=== PATIENT | female | born 1990 ===

== ENCOUNTER 2018-05-30 09:49 | Outpatient (CLI) | payer MEDICAID | END 2018-05-30 09:50 | disposition home or self-care (01) | LOC: C.USIC 09:49 | DX: N64.4 Mastodynia (principal) ==

== ENCOUNTER 2018-07-22 19:06 | Emergency (ER) | payer MEDICAID ==
[2018-07-22 19:16] VITALS: O2SAT 98
[2018-07-22] MEDS ORDERED: Sodium Chloride 0.9% 1,000 ML IV ONE (19:42)
[2018-07-22] MEDS ORDERED: Sodium Chloride 0.9% 1,000 ML ONE (19:57)
[2018-07-22 20:17] LABS: BASO # 0.1 K/uL (0.0-0.2); BASO % 1.3 % (0.0-2.0); EOS # 0.1 K/uL (0.0-0.7); EOS % 1.1 % (0.0-4.0); HEMOGLOBIN 12.1 g/dL (11.0-16.0); LYMPH # 2.6 K/uL (1.0-4.3); LYMPH % 29.7 % (20.0-40.0); MEAN CELL VOLUME 84.2 fL (81.0-99.0); MEAN CORPUSCULAR HEMOGLOBIN 27.6 pg (27.0-31.0); MEAN CORPUSCULAR HGB CONC 32.7 g/dL (33.0-37.0); MEAN PLATELET VOLUME 9.1 fL (7.2-11.7); MONO # 0.6 K/uL (0.0-0.8); MONO % 7.3 % (0.0-10.0); NEUT # 5.3 K/uL (1.8-7.0); NEUT % 60.6 % (50.0-75.0); RBC 4.38 Mil/uL (3.80-5.20); WHITE BLOOD COUNT 8.8 K/uL (4.8-10.8)
[2018-07-22 20:31] LABS: ALB/GLOB RATIO 1.2 (1.0-2.1); ALBUMIN 4.5 g/dL (3.5-5.0); ALT/SGPT 68 U/L (9-52); AST/SGOT 61 U/L (14-36); BLOOD UREA NITROGEN 15 mg/dL (7-17); CALCIUM 9.4 mg/dl (8.6-10.4); GFR NON-AFRICAN AMERICAN > 60; LIPASE 107 U/L (23-300)
[2018-07-22 20:40] LABS: SQUAMOUS EPITHIAL 4 /hpf (0-5); URINE BILIRUBIN NEGATIVE (NEGATIVE); URINE BLOOD 1+ (NEGATIVE); URINE CLARITY Hazy (Clear); URINE COLOR Yellow (YELLOW); URINE GLUCOSE (UA) NORMAL (Normal); URINE LEUKOCYTE ESTERASE 1+ Leu/uL (Negative); URINE PROTEIN NEGATIVE (NEGATIVE); URINE UROBILINOGEN NORMAL mg/dL (0.2-1.0)
[2018-07-22] MEDS ORDERED: Iodixanol 320 MG/ML 100 ML BOTTLE IV ONE (20:57)
--- NOTE | 2018-07-22 22:15 | C.PDOC ---
History Of Present Illness 28 year old female presents to the ED for evaluation of abdominal pain for one day. Patient reports mild nausea. She denies fever, chills, chest pain, shortness of breath, vomiting, recent travel or sick contact. Time Seen by Provider: 07/22/18 19:20 Chief Complaint (Nursing): Abdominal Pain History Per: Patient History/Exam Limitations: no limitations Onset/Duration Of Symptoms: Hrs Current Symptoms Are (Timing): Still Present Location Of Pain/Discomfort: Diffuse Quality Of Discomfort: "Pain" Associated Symptoms: Nausea. denies: Fever, Chills, Vomiting, Chest Pain Additional History Per: Patient Abnormal Vaginal Bleeding: No Past Medical History Reviewed: Historical Data, Nursing Documentation, Vital Signs Vital Signs: Last Vital Signs Temp 98.1 F 07/22/18 19:11 Pulse 87 07/22/18 19:11 Resp 18 07/22/18 19:11 BP 135/90 07/22/18 19:11 Pulse Ox 98 07/22/18 19:11 - Medical History PMH: No Chronic Diseases Surgical History: No Surg Hx Family History: States: Unknown Family Hx - Social History Hx Alcohol Use: Yes Hx Substance Use: No - Immunization History Hx Tetanus Toxoid Vaccination: No Hx Influenza Vaccination: No Hx Pneumococcal Vaccination: No Review Of Systems Constitutional: Negative for: Fever, Chills Cardiovascular: Negative for: Chest Pain Respiratory: Negative for: Shortness of Breath Gastrointestinal: Positive for: Nausea, Abdominal Pain (diffuse ). Negative for: Vomiting Physical Exam - Physical Exam Appears: Non-toxic, No Acute Distress Skin: Normal Color, Warm, Dry Head: Atraumatic, Normacephalic Eye(s): bilateral: Normal Inspection Oral Mucosa: Moist Neck: Supple Chest: Symmetrical, No Deformity, No Tenderness Cardiovascular: Rhythm Regular, No Murmur Respiratory: Normal Breath Sounds, No Rales, No Rhonchi, No Wheezing Gastrointestinal/Abdominal: Soft, Tenderness (diffuse ), No Guarding, No Rebound Extremity: Normal ROM, Capillary Refill (less than 2 seconds ) Neurological/Psych: Oriented x3, Normal Speech, Normal Cognition ED Course And Treatment - Laboratory Results Result Diagrams: 07/22/18 20:11 07/22/18 20:11 Lab Results: Total Bilirubin 0.8 mg/dL (0.2-1.3) 07/22/18 20:11 AST 61 U/L (14-36) H 07/22/18 20:11 ALT 68 U/L (9-52) H 07/22/18 20:11 Alkaline Phosphatase 97 U/L (38-126) 07/22/18 20:11 Total Protein 8.3 g/dL (6.3-8.3) 07/22/18 20:11 Albumin 4.5 g/dL (3.5-5.0) 07/22/18 20:11 Globulin 3.8 gm/dL (2.2-3.9) 07/22/18 20:11 Albumin/Globulin Ratio 1.2 (1.0-2.1) 07/22/18 20:11 Lipase 107 U/L (23-300) 07/22/18 20:11 Urine Color Yellow (YELLOW) 07/22/18 19:58 Urine Clarity Hazy (Clear) 07/22/18 19:58 Urine pH 6.0 (5.0-8.0) 07/22/18 19:58 Ur Specific Tracy 1.027 (1.003-1.030) 07/22/18 19:58 Urine Protein Negative mg/dL (NEGATIVE) 07/22/18 19:58 Urine Glucose (UA) Normal mg/dL (Normal) 07/22/18 19:58 Urine Ketones Negative mg/dL (NEGATIVE) 07/22/18 19:58 Urine Blood 1+ (NEGATIVE) H 07/22/18 19:58 Urine Nitrate Negative (NEGATIVE) 07/22/18 19:58 Urine Bilirubin Negative (NEGATIVE) 07/22/18 19:58 Urine Urobilinogen Normal mg/dL (0.2-1.0) 07/22/18 19:58 Ur Leukocyte Esterase 1+ Matt/uL (Negative) H 07/22/18 19:58 Urine WBC (Auto) 19 /hpf (0-5) H 07/22/18 19:58 Urine RBC (Auto) 9 /hpf (0-3) H 07/22/18 19:58 Ur Squamous Epith Cells 4 /hpf (0-5) 07/22/18 19:58 O2 Sat by Pulse Oximetry: 98 (on RA ) Pulse Ox Interpretation: Normal - CT Scan/US CT A/P Other Rad Studies (CT/US): Read By Radiologist, Radiology Report Reviewed CT/US Interpretation: EXAM: CT Abdomen and Pelvis with IV contrast. CLINICAL HISTORY: Diffuse abd pain. TECHNIQUE: Axial computed tomography images of the abdomen and pelvis with intravenous contrast. 0.00 mGy-cm. CONTRAST: With; VISI 320 100MLS. COMPARISON: None provided. FINDINGS: LUNG BASES: The lung bases appear clear. No pleural effusions are seen. LIVER: Unremarkable. GALLBLADDER AND BILE DUCTS: The gallbladder appears normal in size and configuration. A 2.3 cm cholelith is noted within the gallbladder fundus. No biliary ductal dilatation is evident. PANCREAS: Unremarkable. SPLEEN: Unremarkable. ADRENAL GLANDS: Unremarkable. KIDNEYS, URETERS, AND BLADDER: The kidneys appear within normal limits. There is no hydronephrosis or hydroureter. No urinary calculi are seen. STOMACH AND BOWEL: Unremarkable appearance of the stomach and bowel. No evidence of bowel obstruction. No evidence suggesting enteritis or colitis. APPENDIX: No evidence of acute appendicitis on CT examination. PERITONEUM: No free fluid. No free air. LYMPH NODES: No lymphadenopathy is evident. REPRODUCTIVE: Unremarkable as visualized. VASCULATURE: No evidence of abdominal aortic aneurysm. BONES: No aggressive appearing osseous lesion. No acute osseous pathology evident. IMPRESSION: 1. No acute intra-abdominal or pelvic abnormality. 2. A 2.3 cm cholelith is noted within the gallbladder fundus. Medical Decision Making Medical Decision Making: Progress: Bloodwork, urinalysis, CT A/P ordered and reviewed. Zofran PO and IV Fluids given. On reassessment, patient is resting comfortably, showing no signs of distress and reports an improvement in her pain. Patient is stable for discharge and is advised to f/u with her PMD within 1-2 days for further evaluation. Advised to return to the ED if symptoms persist or worsen. Disposition - Disposition Referrals: Emy Chan MD [Staff Provider] - Disposition: HOME/ ROUTINE Disposition Time: 22:00 Condition: IMPROVED Additional Instructions: LIVE CRENSHAW, thank you for letting us take care of you today. The emergency medical care you received today was directed at your acute symptoms. If you were prescribed any medication, please fill it and take as directed. It may take several days for your symptoms to resolve. Return to the Emergency Department if your symptoms worsen, do not improve, or if you have any other problems. Please contact your doctor or call one of the physicians/clinics you have been referred to that are listed on the Patient Visit Information form that is included in your discharge packet. Bring any paperwork you were given at discharge with you along with any medications you are taking to your follow up visit. Our treatment cannot replace ongoing medical care by a primary care provider outside of the emergency department. Thank you for allowing the [facility] team to be part of your care today. Follow up with your primary care doctor this coming Monday as scheduled for re-evaluation and further management. Prescriptions: Famotidine [Pepcid] 20 mg PO BID #14 tab Nitrofurantoin Macrocrystals [Macrobid] 100 mg PO BID #10 cap Instructions: Urinary Tract Infection, Adult (DC), Gastritis (DC) Forms: [facility] (Amharic) - Clinical Impression Clinical Impression: Gastritis, UTI (urinary tract infection) - PA / QUALITY ASSISTANT / Resident Statement MD/DO has reviewed & agrees with the documentation as recorded. - Scribe Statement The provider has reviewed the documentation as recorded by the Scribe (Jammie Lucas) Provider Attestation: All medical record entries made by the Scribe were at my direction and personally dictated by me. I have reviewed the chart and agree that the record accurately reflects my personal performance of the history, physical exam, medical decision making, and the department course for this patient. I have also personally directed, reviewed, and agree with the discharge instructions and disposition.
[2018-07-22 22:32] VITALS: BP 130/80; PULSE 70; RESP 14; TEMP 98
--- NOTE | 2018-07-23 10:32 | CT ---
Date of service: 07/22/2018 PROCEDURE: CT Abdomen and Pelvis with contrast HISTORY: diffuse abd pain COMPARISON: None available. TECHNIQUE: Contrast dose: 100 mL Visipaque 320 IV Radiation dose: Total exam DLP = 1248.79 mGy-cm. This CT exam was performed using one or more of the following dose reduction techniques: Automated exposure control, adjustment of the mA and/or kV according to patient size, and/or use of iterative reconstruction technique. FINDINGS: LOWER THORAX: No visible consolidation, pleural effusion, or pneumothorax. LIVER: Unremarkable. GALLBLADDER AND BILE DUCTS: Large gallstone within the gallbladder. PANCREAS: Unremarkable. SPLEEN: Unremarkable. ADRENALS: Unremarkable. KIDNEYS AND URETERS: The kidneys enhance symmetrically. No hydronephrosis or obstructing calculus identified. VASCULATURE: No aortic aneurysm. No atherosclerotic calcification or mural plaque present. BOWEL: Stomach is nondistended. Lack of oral contrast limits evaluation for bowel pathology. Bowel loops appear within normal limits of caliber without evidence of obstruction. APPENDIX: No secondary signs of acute appendicitis. PERITONEUM: No significant free fluid. No definite free air. LYMPH NODES: Sub cm mesenteric lymph nodes, nonspecific. No bulky adenopathy identified. BLADDER: Under distended urinary bladder limits evaluation. REPRODUCTIVE: The uterus is present. BONES: No acute osseous abnormality is detected. OTHER FINDINGS: None. IMPRESSION: Large gallstone within the decompressed gallbladder. Additional findings as above. Preliminary impression was provided by [employer].
== END 2018-07-22 22:32 | disposition home or self-care (01) ==
LOC: C.ER 19:06
DX: K29.70 Gastritis, unspecified, without bleeding (principal); N39.0 Urinary tract infection, site not specified
CPT/HCPCS: 74177; 80053; 81001; 81025; 83690; 85025; 87086; 96374; 99285; J2405; J7030; Q9967